=== PATIENT | female | born 1975 | race Caucasian/White ===

== ENCOUNTER 2019-08-06 08:36 | Outpatient (CLI) | payer MEDICARE, MEDICAID, SELFPAY ==
--- NOTE | ~2019-08-06 | MR_ITS ---
EXAMINATION: MR thoracic spine wo con DATE: 08/06/2019 09:29 INDICATION: Mid thoracic back pain. TECHNIQUE: Magnetic resonance imaging (MRI) of the thoracic spine was performed without intravenous c ontrast. Sagittal localizer T1-weighted FSE of the cervicothoracic spine was obtained. Thoracic spine sequences included sagittal T2-weighted FSE, sagittal T1-weighted SE, Sagittal T2-weighted FS FSE, a nd axial T2-weighted FSE. COMPARISON: None FINDINGS: Alignment is normal.Mild anterior wedging at T11 and T12 with<20% anterior vertebral body height loss . Normal marrow signal.Normal disc heights and signal.No central canal stenosis. Mild facet osteoarth ritis at several levels throughout the thoracic spine. No neural foraminal stenosis. There is normal spinal cord signal.The tip of the conus is below the inferior margin of the [id number]. Visualized portion of the inferior right thyroid lobe appears enlarged and heterogeneous likely representing a multinodular goiter. IMPRESSION: 1. Multilevel mild thoracic facet osteoarthritis. Otherwise unremarkable thoracic spine with normal d iscs, normal spinal cord signal and no central canal or neural foraminal stenosis. 2. Partially visualized likely goiter with large heterogeneous right thyroid lobe. Could consider thy roid ultrasound for risk stratification. Reviewed, dictated and finalized at location A. IMPRESSION: 1. Multilevel mild thoracic facet osteoarthritis. Otherwise unremarkable thorac ic spine with normal discs, normal spinal cord signal and no central canal or n eural foraminal stenosis. 2. Partially visualized likely goiter with large heterogeneous right thyroid lo be. Could consider thyroid ultrasound for risk stratification.
== END 2019-08-06 08:37 | disposition home or self-care (01) ==
PROVIDERS: Visit Provider Nurse Practitioner Family
DX: M54.6 Pain in thoracic spine (principal); M85.88 Other specified disorders of bone density and structure, other site; R93.89 Abnormal findings on diagnostic imaging of other specified body structures
CPT/HCPCS: 72146